=== PATIENT | male | born 1975 | race Caucasian/White ===

== ENCOUNTER 2017-10-18 20:11 | Emergency (ER) | payer SELFPAY ==
[~2017-10-18] VITALS: Ht 177.8 cm; Wt 72.0 kg
[2017-10-18 20:15] VITALS: BP 149/83; PULSE 105; RESP 16; TEMP 98; O2SAT 99
--- NOTE | 2017-10-18 21:53 | PD ---
HPI Chief Complaint: Psychiatric Symptoms Time Seen by Provider: 21:31 Travel History International Travel<30 days: No Contact w/Intl Traveler<30days: No Traveled to known affect area: No History of Present Illness HPI 42-year-old male with history of anxiety presents to the emergency department for evaluation of frequent panic attacks. Patient states that he has not been on medication for months. He has been under a lot of stress as of late and his panic attacks seem to be worsening. Denies any chest pain or tightness. No difficulty breathing. He does feel anxious right now. Denies suicidal homicidal ideations. Denies illicit drug use. He has no other symptoms to report. PFSH Past Medical History Anxiety: Yes Medical other: Yes (SPENECTOMY, CHOLYSESECTOMY) Social History Alcohol Use: Yes (OCCASIONALLY) Tobacco Use: Yes (1 PPD) Substance Use: No Allergies-Medications (Allergen,Severity, Reaction): Coded Allergies: No Known Allergies (Unverified , 10/18/17) Reported Meds & Prescriptions Reported Meds & Active Scripts Active No Active Prescriptions or Reported Medications Review of Systems Except as stated in HPI: all other systems reviewed are Neg Physical Exam Narrative GENERAL: Well-nourished male patient, ambulatory and in no acute distress. SKIN: Focused skin assessment warm/dry. HEAD: Atraumatic. Normocephalic. EYES: Pupils equal and round. No scleral icterus. No injection or drainage. ENT: No nasal bleeding or discharge. Mucous membranes pink and moist. NECK: Trachea midline. No JVD. CARDIOVASCULAR: Elevated rate and rhythm. No murmur appreciated. RESPIRATORY: No accessory muscle use. Clear to auscultation. Breath sounds equal bilaterally. GASTROINTESTINAL: Abdomen soft, non-tender, nondistended. Hepatic and splenic margins not palpable. MUSCULOSKELETAL: No obvious deformities. No clubbing. No cyanosis. No edema. NEUROLOGICAL: Awake and alert. No obvious cranial nerve deficits. Motor grossly within normal limits. Normal speech. Data Data Last Documented VS Vital Signs Date Time Temp Pulse Resp B/P (MAP) Pulse Ox O2 Delivery O2 Flow Rate FiO2 10/18/17 20:15 98.0 105 16 149/83 (105) 99 Room Air Orders Orders Lorazepam (Ativan) (10/18/17 22:00) Ed Discharge Order (10/18/17 22:09) [facility] Medical Decision Making Medical Screen Exam Complete: Yes Emergency Medical Condition: Yes Medical Record Reviewed: Yes Differential Diagnosis Mood disorder versus personality disorder versus anxiety versus adjustment reaction disorder Narrative Course 42-year-old male presents to emergency department for evaluation of more frequent panic attacks. Patient appears without distress. He is slightly anxious during my exam with him. Denies suicidal homicidal ideations. He is given 1 mg Ativan by mouth here in the emergency department. He will be discharged home with prescription for Vistaril. He is provided outpatient resources. He agrees to return immediately to emergency department with any acute worsening symptoms. Diagnosis Primary Impression: Anxiety Referrals: [facility] (Out patient) Primary Care Physician Patient Instructions: Anxiety (ED), General Instructions Additional Instructions: Follow-up with a primary care provider Seek outpatient assistance in managing her anxiety Avoid caffeine and other stimulants as this may worsen your anxiety Return immediately to emergency department with any acute worsening of symptoms Med/Other Pt SpecificInfo: Prescription(s) given Scripts Hydroxyzine Pamoate (Vistaril) 25 Mg Cap 25 MG PO Q6H Y for AGITATION, #30 CAP 0 Refills Prov: Jazz Moser 10/18/17 Disposition: 01 DISCHARGE HOME Condition: Stable Jazz Moser Oct 18, 2017 21:53
[2017-10-18] MEDS ORDERED: LORazepam 1 MG TAB PO ONE (22:00)
[2017-10-18] MEDS ORDERED: VIST25CA PO (22:17)
== END 2017-10-18 22:35 | disposition home or self-care (01) ==
LOC: NEPD 20:11
DX: F41.9 Anxiety disorder, unspecified (principal); F17.200 Nicotine dependence, unspecified, uncomplicated; Z98.890 Other specified postprocedural states; Z90.49 Acquired absence of other specified parts of digestive tract
CPT/HCPCS: 99283